=== PATIENT | female | born 1995 | race Hispanic/Latino ===

== ENCOUNTER 2022-01-15 09:50 | Emergency (ER) | payer OTHER, SELFPAY ==
[2022-01-15 10:43] LABS: #Basophils 0.1 10x3/uL (0.0-0.2); #Eosinphils 0.1 10x3/uL (0.0-0.5); #Monocytes 1.1 10x3/uL (0.0-1.1); %Basophils 0.4 % (0.0-2.0); %Eosinophils 0.7 % (0.0-6.0); %Lymphocytes 12.7 % (18.0-47.0); %Monocytes 6.9 % (0.0-10.0); %Neutrophils 77.2 % (40.0-75.0); Mean Corpuscular HGB CONC 33.2 g/dL (32.0-36.0); Mean Corpuscular Hemoglobin 28.6 pg (27.0-33.0); Mean Corpuscular Volume 86.2 fl (81.6-98.3); Mean Platelet Volume 11.5 fl (7.4-10.4); Platelet Count 255 10x3/uL (150-450); Red Blood Cell (RBC) Count 3.84 10x6/uL (3.90-5.03); White Blood Cell (WBC) Count 15.6 10x3/uL (3.5-10.5)
[2022-01-15 12:00] LABS: ALT (SGPT) 18 U/L (8-55); AST (SGOT) 27 U/L (5-34); Albumin 3.6 g/dL (3.5-5.0); Alkaline Phosphatase 134 U/L (40-110); Anion Gap 15 mmol/L (10-20); BUN (Urea Nitrogen) 7 mg/dL (7.0-18.7); Bilirubin, Total 0.2 mg/dL (0.2-1.2); Calc. Creatinine Clearance 0 mL/min (70-130); Carbon Dioxide 19 mmol/L (22-29); Chloride 106 mmol/L (98-107); Globulin 3.8 g/dL (2.4-3.5); Glucose 80 mg/dL (70-105); Potassium 3.7 mmol/L (3.5-5.1); Protein, Total 7.4 g/dL (6.0-8.3); Sodium 136 mmol/L (136-145)
[2022-01-15 23:48] LABS: SARS-CoV-2 PCR by NAA Not Detected (NotDetected)
== END 2022-01-15 12:32 | disposition home or self-care (01) ==
LOC: CSHERS 09:50
DX: O98.513 Other viral diseases complicating pregnancy, third trimester (principal); B34.9 Viral infection, unspecified; R05.9 Cough, unspecified; U09.9 Post COVID-19 condition, unspecified; Z20.822 Contact with and (suspected) exposure to COVID-19; Z3A.31 31 weeks gestation of pregnancy
CPT/HCPCS: 71045; 80053; 85025; 87804; U0003; U0005

== ENCOUNTER 2022-02-24 19:00 | Inpatient (IN) | payer OTHER ==
[2022-02-24] MEDS ORDERED: Ondansetron PF 4 MG/2 ML Vial IVP PRN (23:05)
[2022-02-24] MEDS ORDERED: Zolpidem Tartrate 5 MG TAB PO PRN (23:05)
[2022-02-24] MEDS ORDERED: HYDROcodone/Acetaminophen 5/325 mg Tablet PO PRN (23:05)
[2022-02-24] MEDS ORDERED: Docusate 100 MG CAP PO PRN (23:05)
[2022-02-24] MEDS ORDERED: Butorphanol Tartrate 1 MG/ML VIAL SLOW IVP PRN (23:05)
[2022-02-24] MEDS ORDERED: Promethazine HCl 25 MG/ML VIAL IM PRN (23:05)
[2022-02-24] MEDS ORDERED: hydrALAZINE 20 MG/ML VIAL SLOW IVP PRN (23:05)
[2022-02-24] MEDS ORDERED: Ibuprofen 800 MG TAB PO PRN (23:05)
[2022-02-24] MEDS ORDERED: Lidocaine 1% (PF) 30 ML VIAL SC PRN (23:05)
[2022-02-24] MEDS ORDERED: Acetaminophen 500 MG TAB PO PRN (23:05)
[2022-02-24] MEDS ORDERED: NS w/ Oxytocin 30 units 500 ML IV SCH ×2 (23:15)
[2022-02-25 00:22] VITALS: BMI 46.3
[2022-02-25] MEDS: Lactated Ringer's 1,000 ML IV SCH ×3 (00:40→23:54)
[2022-02-25 00:46] LABS: Hemoglobin 10.3 g/dL (12.0-15.5); Mean Corpuscular HGB CONC 32.2 g/dL (32.0-36.0); Mean Corpuscular Hemoglobin 27.3 pg (27.0-33.0); Mean Corpuscular Volume 84.9 fl (81.6-98.3); Mean Platelet Volume 12.3 fl (7.4-10.4); Platelet Count 240 10x3/uL (150-450); RBC Distribution Width 14.9 % (11.5-14.5); Red Blood Cell (RBC) Count 3.77 10x6/uL (3.90-5.03); White Blood Cell (WBC) Count 11.1 10x3/uL (3.5-10.5)
[2022-02-25 01:23] LABS: Hep B Surf Ag Non-Reactive S/CO (NonReactive); Syphilis Antibody Nonreactive (Nonreactive); Syphilis Antibody Index 0.05 S/CO (<1.00 Non-Reactive)
[2022-02-25] MEDS: Misoprostol 100 MCG TAB VAG SCH ×2 (01:34→23:53)
[2022-02-25 01:55] LABS: HBSAg Index 0.17 S/CO (0-0.99)
[2022-02-25] MEDS ORDERED: Fentanyl 2 mcg/Bup 0.1% Cadd 100 ML ONE (08:16)
[2022-02-25] MEDS ORDERED: ePHEDrine Sulfate 50 MG/10 ML VIAL SLOW IVP PRN (08:31)
[2022-02-25] MEDS ORDERED: Lactated Ringer's 500 ML IV PRN (08:31)
[2022-02-25] MEDS ORDERED: diphenhydrAMINE 50 MG/ML VIAL IVP PRN (08:31)
[2022-02-25] MEDS ORDERED: Ondansetron PF 4 MG/2 ML Vial IVP PRN ×2 (08:31→23:55)
[2022-02-25] MEDS ORDERED: Naloxone HCl 0.4 mg/ml Vial IVP PRN ×2 (08:31)
[2022-02-25] MEDS ORDERED: Hydrocerin (Eucerin) Cream 120 gm Jar TOP PRN (08:31)
[2022-02-25] MEDS ORDERED: Promethazine HCl 25 MG/ML VIAL IM PRN ×2 (08:31→23:55)
[2022-02-25] MEDS ORDERED: Fentanyl 2 mcg/Bupivacaine 0.1% Cassette 100 ML EPIDURAL SCH (08:45)
[2022-02-25] MEDS ORDERED: Communication Order-Pharmacy FS SCH (08:45)
[2022-02-25] MEDS: Acetaminophen 325 MG TAB PO PRN ×2 (09:25→17:54)
[2022-02-25] MEDS ORDERED: Silver Nitrate Application 1 EACH ONE (19:52)
[2022-02-25] MEDS ORDERED: Measles/Mumps/Rubella 10 MCG/0.5 ML VIAL SC ONE (23:55)
[2022-02-25] MEDS ORDERED: Varicella virus, LIVE 0.5 ML VIAL SC ONE (23:55)
[2022-02-25] MEDS ORDERED: Lanolin Ointment 7 GM TUBE TOP PRN (23:55)
[2022-02-25] MEDS ORDERED: Milk Of Magnesia 30 ML UDCUP PO PRN (23:55)
[2022-02-25] MEDS ORDERED: Preparation H Ointment 28 GM TUBE PR PRN (23:55)
[2022-02-25] MEDS ORDERED: Bisacodyl 10 MG SUPP PR PRN (23:55)
[2022-02-25] MEDS ORDERED: Boostrix 0.5 ML (Tdap) VIAL IM ONE (23:55)
[2022-02-25] MEDS ORDERED: Zolpidem Tartrate 5 MG TAB PO PRN (23:55)
[2022-02-25] MEDS ORDERED: hydrALAZINE 20 MG/ML VIAL SLOW IVP PRN (23:55)
[2022-02-25] MEDS ORDERED: HYDROcodone/Acetaminophen 5/325 mg Tablet PO PRN (23:55)
[2022-02-25] MEDS ORDERED: diphenhydrAMINE 25 MG CAP PO PRN (23:55)
[2022-02-25] MEDS ORDERED: Misoprostol 200 MCG TAB VAG PRN (23:55)
[2022-02-25] MEDS ORDERED: Benzocaine-Menthol 82.5 ML CAN TOP PRN (23:55)
[2022-02-25] MEDS ORDERED: NS w/ Oxytocin 30 units 500 ML IV SCH (23:59)
[2022-02-26] MEDS ORDERED: Docusate 100 MG CAP PO SCH (00:01)
[2022-02-26] MEDS ORDERED: Ibuprofen 800 MG TAB PO SCH (00:01)
[2022-02-26 05:23] LABS: Hemoglobin 9.7 g/dL (12.0-15.5); Mean Corpuscular HGB CONC 34.3 g/dL (32.0-36.0); Mean Corpuscular Volume 81.8 fl (81.6-98.3); Mean Platelet Volume 11.8 fl (7.4-10.4); Platelet Count 181 10x3/uL (150-450); RBC Distribution Width 14.7 % (11.5-14.5); Red Blood Cell (RBC) Count 3.46 10x6/uL (3.90-5.03); White Blood Cell (WBC) Count 10.6 10x3/uL (3.5-10.5)
[2022-02-26] MEDS: Ferrous Sulfate 325 MG TAB PO SCH ×2 (08:53→17:02)
[2022-02-26] MEDS: Ibuprofen 800 MG TAB PO SCH ×2 (08:54→17:01)
[2022-02-26] MEDS: Prenatal Vitamin 1 TAB PO SCH (08:54)
[2022-02-26] MEDS: Docusate 100 MG CAP PO SCH ×2 (08:54→21:40)
[2022-02-27] MEDS: Ibuprofen 800 MG TAB PO SCH ×3 (00:55→16:28)
[2022-02-27] MEDS: Lactated Ringer's 1,000 ML IV SCH (07:37)
[2022-02-27] MEDS ORDERED: Bupivacaine 0.25% HCL 30 ML VIAL ONE (08:00)
[2022-02-27] MEDS: Docusate 100 MG CAP PO SCH (08:19)
[2022-02-27] MEDS: Prenatal Vitamin 1 TAB PO SCH (08:20)
[2022-02-27] MEDS: Ferrous Sulfate 325 MG TAB PO SCH ×2 (08:21→16:29)
[2022-02-27 11:42] VITALS: TEMP 98
[2022-02-27 15:49] VITALS: BP 130/81
== END 2022-02-27 17:05 | disposition home or self-care (01) | DRG 768 ==
LOC: CSHLD 23:15 → CSHPP 02-25 23:12
PROVIDERS: ADMIT Obstetrics & Gynecology; ATTEND Obstetrics & Gynecology
PROC: 10D07Z6 Extraction of Products of Conception, Vacuum, Via Natural or Artificial Opening (ICD-10-PCS; principal; 2022-02-25)
PROC: 0UBMXZX Excision of Vulva, External Approach, Diagnostic (ICD-10-PCS; 2022-02-25)
DX: O13.4 Gestational [pregnancy-induced] hypertension without significant proteinuria, complicating childbirth (principal); Z37.0 Single live birth; Z3A.37 37 weeks gestation of pregnancy; O75.89 Other specified complications of labor and delivery; O76 Abnormality in fetal heart rate and rhythm complicating labor and delivery
CPT/HCPCS: 36415; 51702; 85027; 86780; 86850; 86900; 86901; 87340; 88305; J7120; S0020